=== PATIENT | female | born 1935 | race Caucasian/White ===

== ENCOUNTER → 2016-05-29 | Outpatient (CLI) | payer MEDICARE, OTHER ==
[~2016-05-29] MED LIST: AMBIEN10 MG PO; BENADRYL25 M2 PO; CALCIUM-MAGNES1 EAC2 PO; CLARITIN10 MG PO; ERGOCALCIFER50000 IU PO; FLONASE NASAL S16 GM NS; NORCO 325 MG-7.1 TA1 PO; POSTURE D; RECLAST5 MG/100 M IV; RECLAST5 MG/1001 IV; RITE AID ASPIRI81 M1 PO; TRIAMTERENE/HCT1 TAB PO; VITAMIN D5000 I2 PO
== END ==
LOC: LAB 13:30
DX: E86.0 Dehydration (principal)

== ENCOUNTER → 2016-06-25 | Outpatient (CLI) | payer MEDICARE, OTHER | LOC: LAB 14:47 | DX: E86.0 Dehydration (principal); I10 Essential (primary) hypertension ==

== ENCOUNTER → 2016-08-10 | Outpatient (CLI) | payer MEDICARE, OTHER | LOC: LAB 11:23 | DX: E11.9 Type 2 diabetes mellitus without complications (principal); I10 Essential (primary) hypertension; N28.9 Disorder of kidney and ureter, unspecified; M81.0 Age-related osteoporosis without current pathological fracture ==

== ENCOUNTER 2016-08-20 14:41 | Outpatient (RCR) | payer MEDICARE, OTHER ==
[2015-09-16 09:20] VITALS: BP 132/81
== END 2016-10-09 13:12 | disposition home or self-care (01) ==
LOC: PT 14:41 → LAB 14:41 → PT 10-09 13:12
DX: M54.5 Low back pain (principal); M54.6 Pain in thoracic spine
CPT/HCPCS: G0283-GP

== ENCOUNTER → 2016-10-27 | Outpatient (CLI) | payer MEDICARE, OTHER ==
[2015-09-16 09:20] VITALS: BP 132/81
== END ==
LOC: RAD 10:58
DX: J84.112 Idiopathic pulmonary fibrosis (principal)

== ENCOUNTER → 2016-11-20 | Outpatient (CLI) | payer MEDICARE, OTHER ==
[2015-09-16 09:20] VITALS: BP 132/81
== END ==
LOC: LAB 14:33
DX: N28.9 Disorder of kidney and ureter, unspecified (principal)

== ENCOUNTER → 2017-02-26 | Outpatient (CLI) | payer MEDICARE, OTHER ==
[2015-09-16 09:20] VITALS: BP 132/81
[2017-02-26 13:57] LABS: HEMOGLOBIN 12.7 g/dL (12.5-16.0); LYMPH# 2.3 (1.50-4.00); MEAN CELL VOLUME 94 fl (78-100); MEAN CORPUSCULAR HEMOGLOBIN 31 pg (27-31); MEAN CORPUSCULAR HGB CONC 33 g/dL (33-37); MEAN PLATELET VOLUME 10.4 fl (7.4-10.4); MONO # 0.8 (0.20-0.80); NEU # 3.9 (1.40-6.50); PLATELET COUNT 207 K/mm3 (130-400); RED BLOOD COUNT 4.14 M/mm3 (4.10-5.30); RED CELL DISTRIBUTION WIDTH 13.6 % (11.5-14.5); WHITE BLOOD COUNT 7.7 K/mm3 (4.8-10.8)
[2017-02-26 14:10] LABS: ALBUMIN 3.9 g/dL (3.5-5.0); BUN/CREATININE RATIO 19.6 (6.0-26.0); CALCIUM 9.7 mg/dL (8.4-10.2); POTASSIUM 4.7 mmol/L (3.6-5.0); TOTAL BILIRUBIN 0.9 mg/dL (0.2-1.3); TOTAL PROTEIN 7.5 g/dL (6.3-8.2)
[2017-02-26 14:21] LABS: URINE APPEARANCE HAZY; URINE BILIRUBIN NEGATIVE (NEGATIVE); URINE BLOOD NEGATIVE (NEGATIVE); URINE COLOR YELLOW; URINE GLUCOSE NEGATIVE (NEGATIVE); URINE KETONE NEGATIVE (NEGATIVE); URINE LEUKOCYTE ESTERASE 2+ (NEGATIVE); URINE NITRATE NEGATIVE (NEGATIVE); URINE PROTEIN(semi-quant) NEGATIVE (NEGATIVE); URINE UROBILINOGEN NORMAL (NORMAL); URINE WBC 16-30 /hpf (0-3)
[2017-02-26 14:22] LABS: URINE MUCUS PRESENT (NOT PRESENT)
[2017-02-26 15:54] LABS: EOS # 0.7 (0.04-0.40)
[2017-02-26 15:55] LABS: ERYTHROCYTE SEDIMENTATION RATE 15 mm/hr (0-30)
== END ==
LOC: LAB 13:33
PROVIDERS: Internal Medicine
DX: E11.9 Type 2 diabetes mellitus without complications (principal); I10 Essential (primary) hypertension; M81.0 Age-related osteoporosis without current pathological fracture; N28.9 Disorder of kidney and ureter, unspecified; Z12.11 Encounter for screening for malignant neoplasm of colon; R20.2 Paresthesia of skin

== ENCOUNTER → 2017-03-04 | Outpatient (CLI) | payer MEDICARE, OTHER ==
[~2017-03-04] VITALS: Ht 165.1 cm; Wt 79.5 kg
[~2017-03-04] MED LIST changes: +COZAAR 50MG50 MG/TAB PO; +PROLIA60 MG/ML SC
[2017-03-04 10:32] VITALS: BP 113/71
== END ==
LOC: AMSURD 10:20
DX: I49.3 Ventricular premature depolarization (principal)

== ENCOUNTER → 2017-03-05 | Outpatient (CLI) | payer MEDICARE, OTHER ==
[2017-03-04 10:32] VITALS: BP 113/71
[2017-03-05 13:53] LABS: URINE APPEARANCE CLOUDY; URINE COLOR YELLOW
[2017-03-05 13:54] LABS: URINE BILIRUBIN NEGATIVE (NEGATIVE); URINE BLOOD NEGATIVE (NEGATIVE); URINE GLUCOSE NEGATIVE (NEGATIVE); URINE KETONE NEGATIVE (NEGATIVE); URINE LEUKOCYTE ESTERASE 1+ (NEGATIVE); URINE NITRATE POSITIVE (NEGATIVE); URINE PROTEIN(semi-quant) TRACE mg/dL (NEGATIVE); URINE UROBILINOGEN NORMAL (NORMAL); URINE WBC >50 /hpf (0-3)
== END ==
LOC: LAB 13:05
PROVIDERS: Internal Medicine
DX: E11.9 Type 2 diabetes mellitus without complications (principal); I10 Essential (primary) hypertension; M81.0 Age-related osteoporosis without current pathological fracture; N28.9 Disorder of kidney and ureter, unspecified; N39.0 Urinary tract infection, site not specified

== ENCOUNTER → 2017-03-12 | Outpatient (CLI) | payer MEDICARE, OTHER ==
[2017-03-04 10:32] VITALS: BP 113/71
== END ==
LOC: LAB 10:42
PROVIDERS: Internal Medicine
DX: E11.9 Type 2 diabetes mellitus without complications (principal); I10 Essential (primary) hypertension; M81.0 Age-related osteoporosis without current pathological fracture; N28.9 Disorder of kidney and ureter, unspecified

== ENCOUNTER 2017-03-25 08:00 | Outpatient (RCR) | payer MEDICARE, OTHER ==
[2015-09-16 09:20] VITALS: BP 132/81
== END 2017-05-23 | disposition home or self-care (01) ==
LOC: PT
DX: M51.36 Other intervertebral disc degeneration, lumbar region (principal); M62.81 Muscle weakness (generalized)
CPT/HCPCS: G0283-GP; G8978-GP; G8979-GP

== ENCOUNTER → 2017-06-24 | Outpatient (CLI) | payer MEDICARE, OTHER ==
[2017-03-25 09:27] VITALS: BP 171/86
[2017-06-24 13:59] LABS: BUN/CREATININE RATIO 15.7 (6.0-26.0); CALCIUM 8.9 mg/dL (8.4-10.2)
== END ==
LOC: LAB 13:24
PROVIDERS: Internal Medicine
DX: E86.0 Dehydration (principal)

== ENCOUNTER 2017-09-01 14:00 | Outpatient (RCR) | payer MEDICARE, OTHER ==
[2017-03-25 09:27] VITALS: BP 171/86
== END 2017-09-01 14:30 | disposition home or self-care (01) ==
LOC: PT 14:00
DX: M54.5 Low back pain (principal); M54.6 Pain in thoracic spine
CPT/HCPCS: G0283-GP; G8978-GP; G8979-GP

== ENCOUNTER → 2017-09-30 | Outpatient (CLI) | payer MEDICARE, OTHER ==
[2017-03-25 09:27] VITALS: BP 171/86
[2017-09-30 10:10] LABS: ALBUMIN 3.8 g/dL (3.5-5.0); BUN/CREATININE RATIO 21.5 (6.0-26.0); CALCIUM 9.2 mg/dL (8.4-10.2); POTASSIUM 4.7 mmol/L (3.6-5.0); TOTAL BILIRUBIN 0.6 mg/dL (0.2-1.3); TOTAL PROTEIN 7.4 g/dL (6.3-8.2)
[2017-09-30 10:55] LABS: HEMATOCRIT 39.4 % (37.0-47.0); HEMOGLOBIN 12.6 g/dL (12.5-16.0); MEAN CELL VOLUME 94 fl (78-100); MEAN CORPUSCULAR HEMOGLOBIN 30 pg (27-31); MEAN CORPUSCULAR HGB CONC 32 g/dL (33-37); MEAN PLATELET VOLUME 11.1 fl (7.4-10.4); PLATELET COUNT 195 K/mm3 (130-400); RED CELL DISTRIBUTION WIDTH 14.1 % (11.5-14.5); WHITE BLOOD COUNT 7.5 K/mm3 (4.8-10.8)
[2017-09-30 11:02] LABS: ERYTHROCYTE SEDIMENTATION RATE 17 mm/hr (0-30); LYMPHOCYTE 34 % (20-51); MONOCYTE 7 % (3-10); NEUTROPHILS 48 % (42-75)
== END ==
LOC: RAD 09:00 → LAB 09:00
PROVIDERS: Internal Medicine
DX: J98.4 Other disorders of lung (principal); E11.9 Type 2 diabetes mellitus without complications; M81.0 Age-related osteoporosis without current pathological fracture; I10 Essential (primary) hypertension; N28.9 Disorder of kidney and ureter, unspecified; J84.10 Pulmonary fibrosis, unspecified

== ENCOUNTER → 2018-01-12 | Outpatient (CLI) | payer MEDICARE, OTHER ==
[2017-03-25 09:27] VITALS: BP 171/86
[2018-01-12 10:11] LABS: ALBUMIN 4.3 g/dL (3.5-5.0); CALCIUM 9.6 mg/dL (8.4-10.2); POTASSIUM 4.9 mmol/L (3.6-5.0); TOTAL BILIRUBIN 0.7 mg/dL (0.2-1.3); TOTAL PROTEIN 7.4 g/dL (6.3-8.2)
== END ==
LOC: LAB 09:38
PROVIDERS: Internal Medicine
DX: N28.9 Disorder of kidney and ureter, unspecified (principal); E11.9 Type 2 diabetes mellitus without complications; M81.0 Age-related osteoporosis without current pathological fracture; I10 Essential (primary) hypertension

== ENCOUNTER → 2018-01-24 | Outpatient (CLI) | payer MEDICARE, OTHER ==
[2017-03-25 09:27] VITALS: BP 171/86
== END ==
LOC: RAD 13:25
DX: S22.070A Wedge compression fracture of T9-T10 vertebra, initial encounter for closed fracture (principal); M47.894 Other spondylosis, thoracic region

== ENCOUNTER 2018-02-17 11:30 | Outpatient (RCR) | payer MEDICARE, OTHER ==
[2017-03-25 09:27] VITALS: BP 171/86
== END 2018-02-17 12:00 | disposition home or self-care (01) ==
LOC: PT 11:30
DX: M54.6 Pain in thoracic spine (principal); G89.29 Other chronic pain
CPT/HCPCS: G0283-GP

== ENCOUNTER → 2018-03-10 | Outpatient (CLI) | payer MEDICARE, OTHER ==
[2017-03-25 09:27] VITALS: BP 171/86
[2018-03-10 11:08] LABS: EOS # 0.6 (0.04-0.40); EOS % 7.4 % (1.0-5.0); HEMATOCRIT 34.6 % (37.0-47.0); HEMOGLOBIN 10.7 g/dL (12.5-16.0); LYMPH# 2.4 (1.50-4.00); MEAN CELL VOLUME 91 fl (78-100); MEAN CORPUSCULAR HEMOGLOBIN 28 pg (27-31); MEAN CORPUSCULAR HGB CONC 31 g/dL (33-37); MEAN PLATELET VOLUME 10.6 fl (7.4-10.4); MONO # 0.9 (0.20-0.80); NEU # 4.2 (1.40-6.50); PLATELET COUNT 222 K/mm3 (130-400); RED BLOOD COUNT 3.81 M/mm3 (4.10-5.30); WHITE BLOOD COUNT 8.1 K/mm3 (4.8-10.8)
[2018-03-10 11:13] LABS: ALBUMIN 4.2 g/dL (3.5-5.0); CALCIUM 9.4 mg/dL (8.4-10.2); POTASSIUM 4.9 mmol/L (3.6-5.0); TOTAL PROTEIN 7.6 g/dL (6.3-8.2)
[2018-03-10 12:16] LABS: ERYTHROCYTE SEDIMENTATION RATE 26 mm/hr (0-30)
[2018-03-10 12:28] LABS: URINE APPEARANCE HAZY; URINE BILIRUBIN NEGATIVE (NEGATIVE); URINE BLOOD NEGATIVE (NEGATIVE); URINE COLOR YELLOW; URINE GLUCOSE NEGATIVE (NEGATIVE); URINE KETONE NEGATIVE (NEGATIVE); URINE LEUKOCYTE ESTERASE 2+ (NEGATIVE); URINE NITRATE NEGATIVE (NEGATIVE); URINE PROTEIN(semi-quant) TRACE mg/dL (NEGATIVE); URINE UROBILINOGEN NORMAL (NORMAL)
[2018-03-10 12:29] LABS: URINE MUCUS PRESENT (NOT PRESENT); URINE WBC 31-50 /hpf (0-3)
== END ==
LOC: LAB 10:17
PROVIDERS: Internal Medicine
DX: Z12.11 Encounter for screening for malignant neoplasm of colon (principal); I10 Essential (primary) hypertension; E11.9 Type 2 diabetes mellitus without complications; D64.9 Anemia, unspecified; M81.0 Age-related osteoporosis without current pathological fracture

== ENCOUNTER → 2018-03-17 | Outpatient (CLI) | payer MEDICARE, OTHER ==
[2017-03-25 09:27] VITALS: BP 171/86
== END ==
LOC: LAB 10:38
DX: Z12.11 Encounter for screening for malignant neoplasm of colon (principal); E11.9 Type 2 diabetes mellitus without complications; D64.9 Anemia, unspecified

== ENCOUNTER → 2018-07-05 | Outpatient (CLI) | payer MEDICARE, OTHER ==
[2017-03-25 09:27] VITALS: BP 171/86
[2018-07-05 10:52] LABS: CALCIUM 9.3 mg/dL (8.4-10.2); POTASSIUM 4.7 mmol/L (3.6-5.0); TOTAL BILIRUBIN 0.8 mg/dL (0.2-1.3); TOTAL PROTEIN 7.3 g/dL (6.3-8.2)
== END ==
LOC: LAB 10:19
PROVIDERS: Internal Medicine
DX: E11.9 Type 2 diabetes mellitus without complications (principal); I10 Essential (primary) hypertension

== ENCOUNTER → 2018-10-06 | Outpatient (CLI) | payer MEDICARE, OTHER ==
[2017-03-25 09:27] VITALS: BP 171/86
[2018-10-06 14:16] LABS: ALBUMIN 3.8 g/dL (3.4-4.8); CALCIUM 9.7 mg/dL (8.3-10.5); TOTAL BILIRUBIN 0.5 mg/dL (0.2-1.2); TOTAL PROTEIN 7.2 g/dL (6.2-8.1)
== END ==
LOC: LAB 13:41
PROVIDERS: Internal Medicine
DX: E11.9 Type 2 diabetes mellitus without complications (principal); I10 Essential (primary) hypertension

== ENCOUNTER 2018-11-03 14:00 | Outpatient (RCR) | payer MEDICARE, OTHER ==
[2017-03-25 09:27] VITALS: BP 171/86
== END 2018-11-03 14:30 | disposition still patient (30) ==
LOC: PT 14:00
DX: M54.16 Radiculopathy, lumbar region (principal)

== ENCOUNTER → 2018-12-27 | Outpatient (CLI) | payer MEDICARE, OTHER ==
[2017-03-25 09:27] VITALS: BP 171/86
[2018-12-27 09:52] LABS: ALBUMIN 3.9 g/dL (3.4-4.8); POTASSIUM 4.5 mmol/L (3.5-5.1)
[2018-12-27 09:55] LABS: TOTAL PROTEIN 7.8 g/dL (6.2-8.1)
[2018-12-27 09:57] LABS: TOTAL BILIRUBIN 1.1 mg/dL (0.2-1.2)
== END ==
LOC: LAB 09:28
PROVIDERS: Internal Medicine
DX: I10 Essential (primary) hypertension (principal); E11.9 Type 2 diabetes mellitus without complications; M81.0 Age-related osteoporosis without current pathological fracture

== ENCOUNTER → 2019-01-02 | Outpatient (CLI) | payer MEDICARE, OTHER ==
[~2019-01-02] VITALS: Ht 165.1 cm; Wt 86.4 kg
[2019-01-02 12:27] LABS: HEMATOCRIT 41.1 % (37.0-47.0); HEMOGLOBIN 12.9 g/dL (12.5-16.0); MEAN CELL VOLUME 94 fl (78-100); MEAN CORPUSCULAR HEMOGLOBIN 30 pg (27-31); MEAN CORPUSCULAR HGB CONC 31 g/dL (33-37); MEAN PLATELET VOLUME 10.7 fl (7.4-10.4); PLATELET COUNT 218 K/mm3 (130-400); RED BLOOD COUNT 4.36 M/mm3 (4.10-5.30); RED CELL DISTRIBUTION WIDTH 14.1 % (11.5-14.5); WHITE BLOOD COUNT 8.7 K/mm3 (4.8-10.8)
[2019-01-02 12:44] LABS: LYMPHOCYTE 25 % (20-51); MONOCYTE 10 % (3-10); NEUTROPHILS 55 % (42-75)
[2019-01-02 13:25] LABS: ERYTHROCYTE SEDIMENTATION RATE 36 mm/hr (0-30)
[2019-01-02 13:48] VITALS: BP 130/71
== END ==
LOC: RAD 12:06
PROVIDERS: Internal Medicine
DX: J92.9 Pleural plaque without asbestos (principal); I10 Essential (primary) hypertension; D64.9 Anemia, unspecified; R20.2 Paresthesia of skin

== ENCOUNTER → 2019-01-23 | Outpatient (CLI) | payer MEDICARE, OTHER ==
[2019-01-02 13:48] VITALS: BP 130/71
[2019-01-23 16:03] LABS: POTASSIUM 5.4 mmol/L (3.5-5.1)
[2019-01-23 16:04] LABS: CALCIUM 9.3 mg/dL (8.3-10.5)
== END ==
LOC: LAB 15:07
PROVIDERS: Internal Medicine
DX: R60.0 Localized edema (principal); R06.02 Shortness of breath

== ENCOUNTER → 2019-01-26 | Outpatient (CLI) | payer MEDICARE, OTHER ==
[2019-01-02 13:48] VITALS: BP 130/71
== END ==
LOC: RAD 08:07
DX: R06.02 Shortness of breath (principal); R60.0 Localized edema; R09.02 Hypoxemia
CPT/HCPCS: Q9967

== ENCOUNTER → 2019-01-30 | Outpatient (CLI) | payer MEDICARE, OTHER ==
[2019-01-02 13:48] VITALS: BP 130/71
== END ==
LOC: VAS 15:54 → RAD 16:00
DX: R06.02 Shortness of breath (principal); R09.02 Hypoxemia

== ENCOUNTER → 2019-02-09 | Outpatient (CLI) | payer MEDICARE, OTHER ==
[2019-01-02 13:48] VITALS: BP 130/71
[2019-02-09 09:28] LABS: POTASSIUM 4.6 mmol/L (3.5-5.1)
[2019-02-09 09:29] LABS: CALCIUM 9.8 mg/dL (8.3-10.5)
== END ==
LOC: LAB 08:51
PROVIDERS: Internal Medicine
DX: R60.0 Localized edema (principal); R06.02 Shortness of breath

== ENCOUNTER → 2019-03-28 | Outpatient (CLI) | payer MEDICARE, OTHER ==
[2019-01-02 13:48] VITALS: BP 130/71
[2019-03-28 12:15] LABS: EOS # 0.6 (0.04-0.40); EOS % 6.6 % (1.0-5.0); HEMATOCRIT 35.8 % (37.0-47.0); LYMPH# 2.2 (1.50-4.00); MEAN CELL VOLUME 97 fl (78-100); MEAN CORPUSCULAR HEMOGLOBIN 30 pg (27-31); MEAN CORPUSCULAR HGB CONC 31 g/dL (33-37); MEAN PLATELET VOLUME 10.1 fl (7.4-10.4); NEU # 5.3 (1.40-6.50); PLATELET COUNT 232 K/mm3 (130-400); RED BLOOD COUNT 3.68 M/mm3 (4.10-5.30); RED CELL DISTRIBUTION WIDTH 14.5 % (11.5-14.5); WHITE BLOOD COUNT 9.2 K/mm3 (4.8-10.8)
[2019-03-28 12:26] LABS: ALBUMIN 3.8 g/dL (3.4-4.8); POTASSIUM 4.5 mmol/L (3.5-5.1)
[2019-03-28 12:27] LABS: CALCIUM 9.6 mg/dL (8.3-10.5)
[2019-03-28 12:28] LABS: TOTAL PROTEIN 7.2 g/dL (6.2-8.1)
[2019-03-28 12:30] LABS: TOTAL BILIRUBIN 0.8 mg/dL (0.2-1.2)
[2019-03-28 12:35] LABS: MAGNESIUM 2.17 mg/dL (1.60-2.60)
== END ==
LOC: LAB 11:56
PROVIDERS: Internal Medicine
DX: E11.9 Type 2 diabetes mellitus without complications (principal); I10 Essential (primary) hypertension

== ENCOUNTER → 2019-07-05 | Outpatient (CLI) | payer MEDICARE, OTHER ==
[2019-01-02 13:48] VITALS: BP 130/71
[2019-07-05 16:37] LABS: EOS # 0.4 (0.04-0.40); EOS % 4.7 % (1.0-5.0); HEMATOCRIT 25.9 % (37.0-47.0); LYMPH# 2.4 (1.50-4.00); MEAN CELL VOLUME 95 fl (78-100); MEAN CORPUSCULAR HEMOGLOBIN 27 pg (27-31); MEAN PLATELET VOLUME 9.1 fl (7.4-10.4); MONO # 0.8 (0.20-0.80); NEU # 4.7 (1.40-6.50); PLATELET COUNT 369 K/mm3 (130-400); RED BLOOD COUNT 2.74 M/mm3 (4.10-5.30); RED CELL DISTRIBUTION WIDTH 14.4 % (11.5-14.5); WHITE BLOOD COUNT 8.3 K/mm3 (4.8-10.8)
[2019-07-05 16:43] LABS: ALBUMIN 3.8 g/dL (3.4-4.8); POTASSIUM 4.6 mmol/L (3.5-5.1)
[2019-07-05 16:44] LABS: CALCIUM 9.6 mg/dL (8.3-10.5)
[2019-07-05 16:45] LABS: TOTAL PROTEIN 6.7 g/dL (6.2-8.1)
[2019-07-05 16:47] LABS: TOTAL BILIRUBIN 0.3 mg/dL (0.2-1.2)
[2019-07-05 16:52] LABS: MAGNESIUM 2.19 mg/dL (1.60-2.60)
[2019-07-05 16:58] LABS: HEMOGLOBIN 7.5 g/dL (12.5-16.0); MEAN CORPUSCULAR HGB CONC 29 g/dL (33-37)
== END ==
LOC: LAB 16:14
PROVIDERS: Internal Medicine
DX: Z12.11 Encounter for screening for malignant neoplasm of colon (principal); I10 Essential (primary) hypertension; E11.9 Type 2 diabetes mellitus without complications; D64.9 Anemia, unspecified

== ENCOUNTER → 2019-07-10 | Outpatient (CLI) | payer MEDICARE, OTHER ==
[2019-01-02 13:48] VITALS: BP 130/71
[2019-07-10 14:16] LABS: EOS # 0.6 (0.04-0.40); EOS % 5.6 % (1.0-5.0); HEMATOCRIT 27.6 % (37.0-47.0); HEMOGLOBIN 8.1 g/dL (12.5-16.0); LYMPH# 2.6 (1.50-4.00); MEAN CELL VOLUME 95 fl (78-100); MEAN CORPUSCULAR HEMOGLOBIN 28 pg (27-31); MEAN CORPUSCULAR HGB CONC 29 g/dL (33-37); MEAN PLATELET VOLUME 9.4 fl (7.4-10.4); MONO # 0.9 (0.20-0.80); NEU # 5.7 (1.40-6.50); PLATELET COUNT 340 K/mm3 (130-400); RED BLOOD COUNT 2.91 M/mm3 (4.10-5.30); RED CELL DISTRIBUTION WIDTH 14.8 % (11.5-14.5); WHITE BLOOD COUNT 9.8 K/mm3 (4.8-10.8)
== END ==
LOC: LAB 09:52
PROVIDERS: Internal Medicine
DX: Z12.11 Encounter for screening for malignant neoplasm of colon (principal); I10 Essential (primary) hypertension; E11.9 Type 2 diabetes mellitus without complications; D64.9 Anemia, unspecified

== ENCOUNTER → 2019-07-13 | Day surgery (SDC) | payer MEDICARE, OTHER ==
[2019-01-02 13:48] VITALS: BP 130/71
== END ==
LOC: MSO 08:35
DX: K57.30 Diverticulosis of large intestine without perforation or abscess without bleeding (principal); D50.0 Iron deficiency anemia secondary to blood loss (chronic); I10 Essential (primary) hypertension; G47.33 Obstructive sleep apnea (adult) (pediatric); E11.9 Type 2 diabetes mellitus without complications; Z88.1 Allergy status to other antibiotic agents; Z88.2 Allergy status to sulfonamides; Z79.82 Long term (current) use of aspirin; Z79.01 Long term (current) use of anticoagulants
CPT/HCPCS: 00813; J2704; J7030

== ENCOUNTER 2019-08-26 10:15 | Emergency (ER) | payer MEDICARE, OTHER ==
[2019-08-26] MEDS ORDERED: VITAMIN C500 M6 PO (10:32)
[2019-08-26] MEDS ORDERED: FEROSUL325 M1 PO (10:32)
[2019-08-26 11:22] LABS: EOS # 0.7 (0.04-0.40); HEMATOCRIT 39.5 % (37.0-47.0); HEMOGLOBIN 11.9 g/dL (12.5-16.0); MEAN CELL VOLUME 94 fl (78-100); MEAN CORPUSCULAR HEMOGLOBIN 28 pg (27-31); MEAN CORPUSCULAR HGB CONC 30 g/dL (33-37); MEAN PLATELET VOLUME 10.3 fl (7.4-10.4); PLATELET COUNT 250 K/mm3 (130-400); RED BLOOD COUNT 4.19 M/mm3 (4.10-5.30); RED CELL DISTRIBUTION WIDTH 15.8 % (11.5-14.5); WHITE BLOOD COUNT 9.7 K/mm3 (4.8-10.8)
[2019-08-26 11:36] LABS: POTASSIUM 4.8 mmol/L (3.5-5.1)
[2019-08-26 11:38] LABS: CALCIUM 9.8 mg/dL (8.3-10.5)
[2019-08-26 11:39] LABS: TOTAL PROTEIN 7.4 g/dL (6.2-8.1)
[2019-08-26 11:41] LABS: TOTAL BILIRUBIN 0.5 mg/dL (0.2-1.2)
[2019-08-26 11:54] LABS: D-DIMER 7.48 mg/L FEU (0.15-0.50)
[2019-08-26 12:23] VITALS: BP 138/80
== END 2019-08-26 12:28 | disposition home or self-care (01) ==
LOC: ED 10:15
PROVIDERS: Family Medicine
DX: M79.661 Pain in right lower leg (principal); Z86.718 Personal history of other venous thrombosis and embolism; Z79.82 Long term (current) use of aspirin
CPT/HCPCS: J1650

== ENCOUNTER → 2019-08-28 | Outpatient (CLI) | payer MEDICARE, OTHER ==
[2019-08-26 12:23] VITALS: BP 138/80
[~2019-08-28] MED LIST changes: +FEROSUL325 M1 PO; +VITAMIN C500 M6 PO
== END ==
LOC: RAD 13:15
DX: M79.89 Other specified soft tissue disorders (principal); Z86.718 Personal history of other venous thrombosis and embolism

== ENCOUNTER 2019-09-18 10:56 | Emergency (ER) | payer MEDICARE, OTHER ==
[2019-09-18] MEDS ORDERED: VITAMIN D21250 MCG PO (11:27)
[2019-09-18] MEDS ORDERED: OMEPRAZOLE40 MG PO (11:27)
[2019-09-18] MEDS ORDERED: XARELTO20 MG PO (11:27)
[2019-09-18] MEDS ORDERED: LOSARTAN POTASS50 M1 PO (11:27)
[2019-09-18] MEDS ORDERED: ASPIRIN E.C. 8181 MG (11:27)
[2019-09-18 11:36] LABS: EOS # 0.3 (0.04-0.40); EOS % 4.4 % (1.0-5.0); LYMPH# 1.4 (1.50-4.00); MEAN CELL VOLUME 97 fl (78-100); MEAN CORPUSCULAR HEMOGLOBIN 29 pg (27-31); MEAN CORPUSCULAR HGB CONC 30 g/dL (33-37); MEAN PLATELET VOLUME 10.6 fl (7.4-10.4); MONO # 0.7 (0.20-0.80); NEU # 5.1 (1.40-6.50); PLATELET COUNT 204 K/mm3 (130-400); RED CELL DISTRIBUTION WIDTH 17.2 % (11.5-14.5); WHITE BLOOD COUNT 7.5 K/mm3 (4.8-10.8)
[2019-09-18 11:41] LABS: HEMATOCRIT 20.4 % (37.0-47.0); HEMOGLOBIN 6.1 g/dL (12.5-16.0); RED BLOOD COUNT 2.11 M/mm3 (4.10-5.30)
[2019-09-18 11:44] LABS: URINE APPEARANCE CLEAR; URINE COLOR YELLOW
[2019-09-18 11:45] LABS: URINE BILIRUBIN NEGATIVE (NEGATIVE); URINE BLOOD NEGATIVE (NEGATIVE); URINE GLUCOSE NEGATIVE (NEGATIVE); URINE KETONE NEGATIVE (NEGATIVE); URINE LEUKOCYTE ESTERASE 1+ (NEGATIVE); URINE NITRATE POSITIVE (NEGATIVE); URINE PROTEIN(semi-quant) 1+ mg/dL (NEGATIVE); URINE UROBILINOGEN NORMAL (NORMAL)
[2019-09-18 11:54] LABS: ALBUMIN 3.5 g/dL (3.4-4.8); POTASSIUM 4.4 mmol/L (3.5-5.1)
[2019-09-18 11:55] LABS: CALCIUM 8.7 mg/dL (8.3-10.5)
[2019-09-18 11:56] LABS: TOTAL PROTEIN 5.9 g/dL (6.2-8.1)
[2019-09-18 11:58] LABS: TOTAL BILIRUBIN 0.3 mg/dL (0.2-1.2)
[2019-09-18 13:22] LABS: PARTIAL THROMBOPLASTIN TIME 23.3 SECONDS (21.0-32.0)
[2019-09-18 14:56] VITALS: BP 104/44
== END 2019-09-18 14:34 | disposition short-term general hospital (02) ==
LOC: ED 10:56
PROVIDERS: Nurse Practitioner
DX: K92.2 Gastrointestinal hemorrhage, unspecified (principal); N39.0 Urinary tract infection, site not specified; E11.9 Type 2 diabetes mellitus without complications; I10 Essential (primary) hypertension; Z86.718 Personal history of other venous thrombosis and embolism; Z87.891 Personal history of nicotine dependence; Z79.01 Long term (current) use of anticoagulants; Z79.82 Long term (current) use of aspirin
CPT/HCPCS: A4216; C9113; J0696; J2270; J2405; J7030

== ENCOUNTER → 2019-10-05 | Outpatient (CLI) | payer MEDICARE, OTHER ==
[2019-09-18 14:56] VITALS: BP 104/44
[~2019-10-05] MED LIST changes: +ASPIRIN E.C. 8181 MG; +LOSARTAN POTASS50 M1 PO; +OMEPRAZOLE40 MG PO; +VITAMIN D21250 MCG PO; +XARELTO20 MG PO
[2019-10-05 08:24] LABS: HEMATOCRIT 29.8 % (37.0-47.0); HEMOGLOBIN 8.9 g/dL (12.5-16.0); MEAN CELL VOLUME 95 fl (78-100); MEAN CORPUSCULAR HEMOGLOBIN 28 pg (27-31); MEAN CORPUSCULAR HGB CONC 30 g/dL (33-37); MEAN PLATELET VOLUME 9.3 fl (7.4-10.4); PLATELET COUNT 323 K/mm3 (130-400); RED BLOOD COUNT 3.14 M/mm3 (4.10-5.30); RED CELL DISTRIBUTION WIDTH 15.9 % (11.5-14.5); WHITE BLOOD COUNT 6.8 K/mm3 (4.8-10.8)
[2019-10-05 08:34] LABS: ALBUMIN 3.8 g/dL (3.4-4.8); POTASSIUM 4.1 mmol/L (3.5-5.1)
[2019-10-05 08:36] LABS: TOTAL PROTEIN 6.8 g/dL (6.2-8.1)
[2019-10-05 08:38] LABS: TOTAL BILIRUBIN 0.7 mg/dL (0.2-1.2)
[2019-10-05 08:43] LABS: MAGNESIUM 2.16 mg/dL (1.60-2.60)
[2019-10-05 09:46] LABS: LYMPHOCYTE 27 % (20-51); MONOCYTE 9 % (3-10); NEUTROPHILS 56 % (42-75)
== END ==
LOC: LAB 08:14
PROVIDERS: Internal Medicine
DX: D64.9 Anemia, unspecified (principal); E11.9 Type 2 diabetes mellitus without complications; I10 Essential (primary) hypertension

== ENCOUNTER → 2019-10-06 | Outpatient (CLI) | payer MEDICARE, OTHER ==
[2019-09-18 14:56] VITALS: BP 104/44
== END ==
LOC: RAD 10:32
DX: R06.02 Shortness of breath (principal); I82.409 Acute embolism and thrombosis of unspecified deep veins of unspecified lower extremity; E11.22 Type 2 diabetes mellitus with diabetic chronic kidney disease; N18.3 Chronic kidney disease, stage 3 (moderate); K92.2 Gastrointestinal hemorrhage, unspecified
CPT/HCPCS: Q9967

== ENCOUNTER → 2019-10-19 | Outpatient (CLI) | payer MEDICARE, OTHER ==
[2019-10-19 10:59] LABS: EOS # 0.5 (0.04-0.40); EOS % 4.9 % (1.0-5.0); HEMOGLOBIN 10.5 g/dL (12.5-16.0); LYMPH# 1.6 (1.50-4.00); MEAN CELL VOLUME 93 fl (78-100); MEAN CORPUSCULAR HEMOGLOBIN 28 pg (27-31); MEAN CORPUSCULAR HGB CONC 30 g/dL (33-37); MEAN PLATELET VOLUME 10.5 fl (7.4-10.4); NEU # 7.1 (1.40-6.50); PLATELET COUNT 217 K/mm3 (130-400); RED BLOOD COUNT 3.76 M/mm3 (4.10-5.30); RED CELL DISTRIBUTION WIDTH 17.2 % (11.5-14.5); WHITE BLOOD COUNT 10.3 K/mm3 (4.8-10.8)
[2019-10-19 11:15] LABS: POTASSIUM 4.9 mmol/L (3.5-5.1)
[2019-10-19 11:16] LABS: CALCIUM 9.3 mg/dL (8.3-10.5)
[2019-10-19 11:18] LABS: TOTAL PROTEIN 7.2 g/dL (6.2-8.1)
[2019-10-19 11:19] LABS: TOTAL BILIRUBIN 0.7 mg/dL (0.2-1.2)
[2019-10-19 11:24] LABS: MAGNESIUM 2.08 mg/dL (1.60-2.60)
== END ==
LOC: LAB 10:45
PROVIDERS: Internal Medicine
DX: E11.9 Type 2 diabetes mellitus without complications (principal); I10 Essential (primary) hypertension; D64.9 Anemia, unspecified

== ENCOUNTER → 2019-11-15 | Outpatient (CLI) | payer MEDICARE, OTHER ==
[2019-11-15 10:45] LABS: EOS # 0.6 (0.04-0.40); EOS % 7.4 % (1.0-5.0); HEMATOCRIT 37.7 % (37.0-47.0); HEMOGLOBIN 11.4 g/dL (12.5-16.0); LYMPH# 2.1 (1.50-4.00); MEAN CELL VOLUME 92 fl (78-100); MEAN CORPUSCULAR HEMOGLOBIN 28 pg (27-31); MEAN CORPUSCULAR HGB CONC 30 g/dL (33-37); MEAN PLATELET VOLUME 10.5 fl (7.4-10.4); MONO # 0.9 (0.20-0.80); NEU # 4.3 (1.40-6.50); PLATELET COUNT 226 K/mm3 (130-400); RED CELL DISTRIBUTION WIDTH 17.2 % (11.5-14.5); WHITE BLOOD COUNT 7.9 K/mm3 (4.8-10.8)
== END ==
LOC: LAB 10:25
PROVIDERS: Internal Medicine
DX: D64.9 Anemia, unspecified (principal); E11.9 Type 2 diabetes mellitus without complications; I10 Essential (primary) hypertension

== ENCOUNTER → 2019-11-16 | Outpatient (CLI) | payer MEDICARE, OTHER ==
[2019-11-16 15:58] LABS: ALBUMIN 3.9 g/dL (3.4-4.8)
[2019-11-16 15:59] LABS: POTASSIUM 4.7 mmol/L (3.5-5.1)
[2019-11-16 16:01] LABS: TOTAL PROTEIN 7.4 g/dL (6.2-8.1)
[2019-11-16 16:03] LABS: TOTAL BILIRUBIN 0.5 mg/dL (0.2-1.2)
[2019-11-16 16:07] LABS: MAGNESIUM 2.21 mg/dL (1.60-2.60)
== END ==
LOC: LAB 15:21
PROVIDERS: Internal Medicine
DX: I10 Essential (primary) hypertension (principal); E11.9 Type 2 diabetes mellitus without complications; M81.0 Age-related osteoporosis without current pathological fracture

== ENCOUNTER → 2019-12-12 | Outpatient (CLI) | payer MEDICARE, OTHER ==
[2019-12-12 16:58] LABS: POTASSIUM 5.1 mmol/L (3.5-5.1)
[2019-12-12 16:59] LABS: CALCIUM 9.3 mg/dL (8.3-10.5)
[2019-12-12 17:00] LABS: TOTAL PROTEIN 7.7 g/dL (6.2-8.1)
[2019-12-12 17:02] LABS: TOTAL BILIRUBIN 0.5 mg/dL (0.2-1.2)
[2019-12-12 17:07] LABS: MAGNESIUM 2.13 mg/dL (1.60-2.60)
[2019-12-12 17:11] LABS: HEMATOCRIT 39.5 % (37.0-47.0); HEMOGLOBIN 12.2 g/dL (12.5-16.0); MEAN CELL VOLUME 92 fl (78-100); MEAN CORPUSCULAR HEMOGLOBIN 28 pg (27-31); MEAN CORPUSCULAR HGB CONC 31 g/dL (33-37); MEAN PLATELET VOLUME 10.9 fl (7.4-10.4); PLATELET COUNT 223 K/mm3 (130-400); RED BLOOD COUNT 4.31 M/mm3 (4.10-5.30); RED CELL DISTRIBUTION WIDTH 17.9 % (11.5-14.5); WHITE BLOOD COUNT 8.2 K/mm3 (4.8-10.8)
[2019-12-12 17:35] LABS: LYMPHOCYTE 24 % (20-51); MONOCYTE 12 % (3-10); NEUTROPHILS 55 % (42-75)
== END ==
LOC: LAB 15:30
PROVIDERS: Internal Medicine
DX: E11.9 Type 2 diabetes mellitus without complications (principal); I10 Essential (primary) hypertension

== ENCOUNTER → 2020-02-09 | Outpatient (CLI) | payer MEDICARE, OTHER ==
[2020-02-09 10:53] LABS: ALBUMIN 3.9 g/dL (3.4-4.8); POTASSIUM 4.8 mmol/L (3.5-5.1)
[2020-02-09 10:54] LABS: CALCIUM 9.1 mg/dL (8.3-10.5)
[2020-02-09 10:56] LABS: TOTAL PROTEIN 6.8 g/dL (6.2-8.1)
[2020-02-09 10:58] LABS: TOTAL BILIRUBIN 0.7 mg/dL (0.2-1.2)
[2020-02-09 11:02] LABS: MAGNESIUM 2.12 mg/dL (1.60-2.60)
== END ==
LOC: LAB 10:14
PROVIDERS: Internal Medicine
DX: E11.9 Type 2 diabetes mellitus without complications (principal); D64.9 Anemia, unspecified; M81.0 Age-related osteoporosis without current pathological fracture; I10 Essential (primary) hypertension

== ENCOUNTER → 2020-05-08 | Outpatient (CLI) | payer MEDICARE, OTHER ==
[2020-05-08 12:57] LABS: HEMATOCRIT 40.8 % (37.0-47.0); HEMOGLOBIN 12.6 g/dL (12.5-16.0); MEAN CELL VOLUME 99 fl (78-100); MEAN CORPUSCULAR HEMOGLOBIN 30 pg (27-31); MEAN CORPUSCULAR HGB CONC 31 g/dL (33-37); MEAN PLATELET VOLUME 10.1 fl (7.4-10.4); PLATELET COUNT 196 K/mm3 (130-400); RED BLOOD COUNT 4.14 M/mm3 (4.10-5.30); RED CELL DISTRIBUTION WIDTH 13.4 % (11.5-14.5)
[2020-05-08 13:09] LABS: ALBUMIN 3.9 g/dL (3.4-4.8); POTASSIUM 4.4 mmol/L (3.5-5.1)
[2020-05-08 13:10] LABS: CALCIUM 9.1 mg/dL (8.3-10.5)
[2020-05-08 13:11] LABS: TOTAL PROTEIN 7.5 g/dL (6.2-8.1)
[2020-05-08 13:13] LABS: TOTAL BILIRUBIN 0.8 mg/dL (0.2-1.2)
[2020-05-08 13:31] LABS: LYMPHOCYTE 23 % (20-51); MONOCYTE 11 % (3-10); NEUTROPHILS 59 % (42-75)
== END ==
LOC: LAB 12:46
PROVIDERS: Internal Medicine
DX: I10 Essential (primary) hypertension (principal); E11.9 Type 2 diabetes mellitus without complications

== ENCOUNTER → 2020-05-22 | Outpatient (CLI) | payer MEDICARE, OTHER | LOC: LAB 13:01 | PROVIDERS: Internal Medicine | DX: N28.9 Disorder of kidney and ureter, unspecified (principal) ==

== ENCOUNTER → 2020-05-30 | Outpatient (CLI) | payer MEDICARE, OTHER | LOC: LAB 16:01 | DX: K92.2 Gastrointestinal hemorrhage, unspecified (principal) ==

== ENCOUNTER → 2020-08-08 | Outpatient (CLI) | payer MEDICARE, OTHER ==
[2020-08-08 17:20] LABS: POTASSIUM 4.5 mmol/L (3.5-5.1)
[2020-08-08 17:21] LABS: ALBUMIN 3.7 g/dL (3.4-4.8)
[2020-08-08 17:22] LABS: CALCIUM 9.2 mg/dL (8.3-10.5)
[2020-08-08 17:23] LABS: TOTAL PROTEIN 7.2 g/dL (6.2-8.1)
[2020-08-08 17:25] LABS: TOTAL BILIRUBIN 0.6 mg/dL (0.2-1.2)
[2020-08-08 17:26] LABS: HEMATOCRIT 39.8 % (37.0-47.0); HEMOGLOBIN 12.2 g/dL (12.5-16.0); MEAN CELL VOLUME 99 fl (78-100); MEAN CORPUSCULAR HEMOGLOBIN 30 pg (27-31); MEAN CORPUSCULAR HGB CONC 31 g/dL (33-37); MEAN PLATELET VOLUME 10.7 fl (7.4-10.4); PLATELET COUNT 206 K/mm3 (130-400); RED BLOOD COUNT 4.03 M/mm3 (4.10-5.30); RED CELL DISTRIBUTION WIDTH 13.5 % (11.5-14.5); WHITE BLOOD COUNT 9.3 K/mm3 (4.8-10.8)
[2020-08-08 18:11] LABS: LYMPHOCYTE 23 % (20-51); MONOCYTE 9 % (3-10); NEUTROPHILS 60 % (42-75)
== END ==
LOC: LAB 16:12
PROVIDERS: Internal Medicine
DX: E11.9 Type 2 diabetes mellitus without complications (principal); E78.2 Mixed hyperlipidemia; I10 Essential (primary) hypertension

== ENCOUNTER → 2020-11-18 | Outpatient (CLI) | payer MEDICARE, OTHER ==
[2020-11-18 16:06] LABS: ALBUMIN 3.8 g/dL (3.4-4.8)
[2020-11-18 16:07] LABS: POTASSIUM 4.8 mmol/L (3.5-5.1)
[2020-11-18 16:08] LABS: CALCIUM 9.1 mg/dL (8.3-10.5)
[2020-11-18 16:09] LABS: TOTAL PROTEIN 7.4 g/dL (6.2-8.1)
[2020-11-18 16:11] LABS: TOTAL BILIRUBIN 0.9 mg/dL (0.2-1.2)
== END ==
LOC: LAB 15:38
PROVIDERS: Internal Medicine
DX: E11.9 Type 2 diabetes mellitus without complications (principal)

== ENCOUNTER → 2020-11-20 | Outpatient (CLI) | payer MEDICARE, OTHER ==
[2020-11-20 17:11] LABS: URINE APPEARANCE CLOUDY; URINE BILIRUBIN NEGATIVE (NEGATIVE); URINE BLOOD TRACE (NEGATIVE); URINE COLOR LT YELLOW; URINE GLUCOSE NEGATIVE (NEGATIVE); URINE KETONE NEGATIVE (NEGATIVE); URINE LEUKOCYTE ESTERASE 1+ (NEGATIVE); URINE NITRATE POSITIVE (NEGATIVE); URINE PROTEIN(semi-quant) TRACE mg/dL (NEGATIVE); URINE UROBILINOGEN NORMAL (NORMAL); URINE WBC 31-50 /hpf (0-3)
== END ==
LOC: LAB 15:55
PROVIDERS: Internal Medicine
DX: N39.0 Urinary tract infection, site not specified (principal)

== ENCOUNTER → 2021-02-12 | Outpatient (CLI) | payer MEDICARE, OTHER ==
[2021-02-12 15:51] LABS: BASO # 0.03 K/mm3 (0.02-0.10); EOS # 1.07 K/mm3 (0.04-0.40); EOS % 10.5 % (1.0-5.0); HEMATOCRIT 41.2 % (37.0-47.0); HEMOGLOBIN 13.2 g/dL (12.5-16.0); LYMPH# 2.85 K/mm3 (1.50-4.00); MEAN CELL VOLUME 100 fl (78-100); MEAN CORPUSCULAR HEMOGLOBIN 32 pg (27-31); MEAN CORPUSCULAR HGB CONC 32 g/dL (33-37); MEAN PLATELET VOLUME 10.2 fl (7.4-10.4); MONO # 1.08 K/mm3 (0.20-0.80); NEU # 5.13 K/mm3 (1.40-6.50); PLATELET COUNT 197 K/mm3 (130-400); RED BLOOD COUNT 4.13 M/mm3 (4.10-5.30); RED CELL DISTRIBUTION WIDTH 12.6 % (11.5-14.5); WHITE BLOOD COUNT 10.2 K/mm3 (4.8-10.8)
[2021-02-12 16:03] LABS: ALBUMIN 3.9 g/dL (3.4-4.8); POTASSIUM 4.6 mmol/L (3.5-5.1)
[2021-02-12 16:04] LABS: CALCIUM 9.9 mg/dL (8.3-10.5)
[2021-02-12 16:06] LABS: TOTAL PROTEIN 7.7 g/dL (6.2-8.1)
[2021-02-12 16:07] LABS: TOTAL BILIRUBIN 0.7 mg/dL (0.2-1.2)
== END ==
LOC: LAB 15:32
PROVIDERS: Internal Medicine
DX: E11.9 Type 2 diabetes mellitus without complications (principal); K90.9 Intestinal malabsorption, unspecified

== ENCOUNTER → 2021-02-14 | Outpatient (CLI) | payer MEDICARE, OTHER ==
[2021-02-14 17:05] LABS: URINE APPEARANCE HAZY; URINE BILIRUBIN NEGATIVE (NEGATIVE); URINE BLOOD NEGATIVE (NEGATIVE); URINE COLOR YELLOW; URINE GLUCOSE NEGATIVE (NEGATIVE); URINE KETONE NEGATIVE (NEGATIVE); URINE LEUKOCYTE ESTERASE 2+ (NEGATIVE); URINE NITRATE NEGATIVE (NEGATIVE); URINE PROTEIN(semi-quant) TRACE mg/dL (NEGATIVE); URINE UROBILINOGEN NORMAL (NORMAL); URINE WBC 31-50 /hpf (0-3)
== END | disposition still patient (30) ==
LOC: LAB 00:21
PROVIDERS: Internal Medicine
DX: E11.9 Type 2 diabetes mellitus without complications (principal); K90.9 Intestinal malabsorption, unspecified

== ENCOUNTER → 2021-05-21 | Outpatient (CLI) | payer MEDICARE, OTHER ==
[2021-05-21 16:23] LABS: BASO # 0.03 K/mm3 (0.02-0.10); EOS # 0.66 K/mm3 (0.04-0.40); HEMATOCRIT 40.1 % (37.0-47.0); HEMOGLOBIN 12.8 g/dL (12.5-16.0); LYMPH# 2.02 K/mm3 (1.50-4.00); MEAN CELL VOLUME 98 fl (78-100); MEAN CORPUSCULAR HEMOGLOBIN 31 pg (27-31); MEAN CORPUSCULAR HGB CONC 32 g/dL (33-37); MONO # 0.98 K/mm3 (0.20-0.80); NEU # 4.53 K/mm3 (1.40-6.50); PLATELET COUNT 214 K/mm3 (130-400); RED BLOOD COUNT 4.08 M/mm3 (4.10-5.30); RED CELL DISTRIBUTION WIDTH 12.9 % (11.5-14.5); WHITE BLOOD COUNT 8.3 K/mm3 (4.8-10.8)
[2021-05-21 16:32] LABS: ALBUMIN 3.9 g/dL (3.4-4.8)
[2021-05-21 16:33] LABS: CALCIUM 10.2 mg/dL (8.3-10.5)
[2021-05-21 16:35] LABS: TOTAL PROTEIN 7.6 g/dL (6.2-8.1)
[2021-05-21 16:36] LABS: TOTAL BILIRUBIN 0.7 mg/dL (0.2-1.2)
== END ==
LOC: LAB 15:59
PROVIDERS: Internal Medicine
DX: E11.9 Type 2 diabetes mellitus without complications (principal); K90.9 Intestinal malabsorption, unspecified; E78.2 Mixed hyperlipidemia; I10 Essential (primary) hypertension

== ENCOUNTER → 2021-08-14 | Outpatient (CLI) | payer MEDICARE, OTHER ==
[2021-08-14 15:40] LABS: CALCIUM 10.1 mg/dL (8.3-10.5)
[2021-08-14 15:41] LABS: TOTAL PROTEIN 7.7 g/dL (6.2-8.1)
[2021-08-14 15:43] LABS: TOTAL BILIRUBIN 0.6 mg/dL (0.2-1.2)
== END ==
LOC: LAB 15:15
PROVIDERS: Internal Medicine
DX: E11.9 Type 2 diabetes mellitus without complications (principal); N28.9 Disorder of kidney and ureter, unspecified

== ENCOUNTER → 2021-11-17 | Outpatient (CLI) | payer MEDICARE, OTHER ==
[2021-11-17 13:38] LABS: POTASSIUM 4.7 mmol/L (3.5-5.1)
[2021-11-17 13:39] LABS: CALCIUM 10.3 mg/dL (8.3-10.5)
[2021-11-17 13:41] LABS: TOTAL PROTEIN 7.8 g/dL (6.2-8.1)
== END ==
LOC: LAB 08:13
PROVIDERS: Internal Medicine
DX: E78.2 Mixed hyperlipidemia (principal); E11.9 Type 2 diabetes mellitus without complications

== ENCOUNTER → 2021-12-01 | Outpatient (CLI) | payer MEDICARE, OTHER | LOC: MAMMO 13:30 → RAD 13:30 | DX: M81.0 Age-related osteoporosis without current pathological fracture (principal) ==

== ENCOUNTER → 2022-01-29 | Outpatient (CLI) | payer MEDICARE, OTHER ==
[2022-01-29 17:18] LABS: BASO # 0.04 K/mm3 (0.02-0.10); EOS # 0.86 K/mm3 (0.04-0.40); EOS % 9.1 % (1.0-5.0); HEMATOCRIT 41.3 % (37.0-47.0); HEMOGLOBIN 13.2 g/dL (12.5-16.0); LYMPH# 2.45 K/mm3 (1.50-4.00); MEAN CELL VOLUME 98 fl (78-100); MEAN CORPUSCULAR HEMOGLOBIN 31 pg (27-31); MEAN CORPUSCULAR HGB CONC 32 g/dL (33-37); MEAN PLATELET VOLUME 10.6 fl (7.4-10.4); MONO # 1.02 K/mm3 (0.20-0.80); PLATELET COUNT 200 K/mm3 (130-400); RED BLOOD COUNT 4.22 M/mm3 (4.10-5.30); WHITE BLOOD COUNT 9.5 K/mm3 (4.8-10.8)
[2022-01-29 17:28] LABS: POTASSIUM 4.5 mmol/L (3.5-5.1)
[2022-01-29 17:29] LABS: CALCIUM 10.4 mg/dL (8.3-10.5)
[2022-01-29 17:30] LABS: TOTAL PROTEIN 8.2 g/dL (6.2-8.1)
[2022-01-29 17:32] LABS: TOTAL BILIRUBIN 0.5 mg/dL (0.2-1.2)
[2022-01-29 17:33] LABS: D-DIMER 1.09 mg/L FEU (0.15-0.50)
[2022-01-29 18:06] LABS: ALBUMIN 4.2 g/dL (3.4-4.8)
== END ==
LOC: LAB 16:41
PROVIDERS: Nurse Practitioner
DX: M25.562 Pain in left knee (principal); R22.40 Localized swelling, mass and lump, unspecified lower limb

== ENCOUNTER → 2022-01-30 | Outpatient (CLI) | payer MEDICARE, OTHER | LOC: RAD 07:04 | DX: Z13.6 Encounter for screening for cardiovascular disorders (principal); I82.462 Acute embolism and thrombosis of left calf muscular vein ==

== ENCOUNTER → 2022-02-24 | Outpatient (CLI) | payer MEDICARE, OTHER | LOC: RAD 14:09 | DX: R06.00 Dyspnea, unspecified (principal) ==

== ENCOUNTER → 2022-05-12 | Outpatient (CLI) | payer MEDICARE, OTHER ==
[~2022-05-12] MED LIST changes: +CALCIUM500 M1 PO; +CLOPIDOGREL PO; +PROAIR HFA0.09 MG/AC IH; +PROTONIX TR40 M1 PO; +SINGULAIR PO; +ZINC50 M4 PO
[2022-05-12 15:58] LABS: BASO # 0.05 K/mm3 (0.02-0.10); EOS # 0.54 K/mm3 (0.04-0.40); EOS % 5.7 % (1.0-5.0); HEMATOCRIT 36.5 % (37.0-47.0); HEMOGLOBIN 11.8 g/dL (12.5-16.0); LYMPH# 1.94 K/mm3 (1.50-4.00); MEAN CELL VOLUME 98 fl (78-100); MEAN CORPUSCULAR HEMOGLOBIN 32 pg (27-31); MEAN CORPUSCULAR HGB CONC 32 g/dL (33-37); MEAN PLATELET VOLUME 10.1 fl (7.4-10.4); NEU # 6.12 K/mm3 (1.40-6.50); PLATELET COUNT 229 K/mm3 (130-400); RED BLOOD COUNT 3.73 M/mm3 (4.10-5.30); RED CELL DISTRIBUTION WIDTH 13.4 % (11.5-14.5); WHITE BLOOD COUNT 9.5 K/mm3 (4.8-10.8)
[2022-05-12 16:03] LABS: ALBUMIN 3.7 g/dL (3.4-4.8)
[2022-05-12 16:04] LABS: CALCIUM 9.8 mg/dL (8.3-10.5)
[2022-05-12 16:05] LABS: TOTAL PROTEIN 7.5 g/dL (6.2-8.1)
[2022-05-12 16:07] LABS: TOTAL BILIRUBIN 0.5 mg/dL (0.2-1.2)
[2022-05-12 16:12] LABS: MAGNESIUM 2.14 mg/dL (1.60-2.60)
== END ==
LOC: LAB 15:22
PROVIDERS: Internal Medicine
DX: I82.409 Acute embolism and thrombosis of unspecified deep veins of unspecified lower extremity (principal); M51.34 Other intervertebral disc degeneration, thoracic region; R06.00 Dyspnea, unspecified; J34.89 Other specified disorders of nose and nasal sinuses; K90.9 Intestinal malabsorption, unspecified; I10 Essential (primary) hypertension; E11.9 Type 2 diabetes mellitus without complications; E78.2 Mixed hyperlipidemia; M81.0 Age-related osteoporosis without current pathological fracture

== ENCOUNTER → 2023-01-26 | Outpatient (CLI) | payer MEDICARE, OTHER ==
[~2023-01-26] MED LIST changes: -CALCIUM500 M1 PO; -CLOPIDOGREL PO; -PROTONIX TR40 M1 PO; -SINGULAIR PO; -ZINC50 M4 PO
[2023-01-26 16:39] LABS: BASO # 0.03 K/mm3 (0.02-0.10); EOS # 0.96 K/mm3 (0.04-0.40); EOS % 9.3 % (1.0-5.0); HEMATOCRIT 38.8 % (37.0-47.0); HEMOGLOBIN 12.4 g/dL (12.5-16.0); LYMPH# 2.52 K/mm3 (1.50-4.00); MEAN CELL VOLUME 99 fl (78-100); MEAN CORPUSCULAR HEMOGLOBIN 32 pg (27-31); MEAN CORPUSCULAR HGB CONC 32 g/dL (33-37); MEAN PLATELET VOLUME 10.5 fl (7.4-10.4); MONO # 1.02 K/mm3 (0.20-0.80); NEU # 5.72 K/mm3 (1.40-6.50); PLATELET COUNT 208 K/mm3 (130-400); RED BLOOD COUNT 3.91 M/mm3 (4.10-5.30); RED CELL DISTRIBUTION WIDTH 13.2 % (11.5-14.5); WHITE BLOOD COUNT 10.3 K/mm3 (4.8-10.8)
[2023-01-26 16:43] LABS: ALBUMIN 3.7 g/dL (3.4-4.8); POTASSIUM 4.9 mmol/L (3.5-5.1)
[2023-01-26 16:44] LABS: CALCIUM 9.7 mg/dL (8.3-10.5)
[2023-01-26 16:45] LABS: TOTAL PROTEIN 7.6 g/dL (6.2-8.1)
[2023-01-26 16:47] LABS: TOTAL BILIRUBIN 0.6 mg/dL (0.2-1.2)
[2023-01-26 16:52] LABS: MAGNESIUM 2.19 mg/dL (1.60-2.60)
[2023-01-26 17:05] LABS: URINE APPEARANCE CLEAR; URINE BILIRUBIN NEGATIVE (NEGATIVE); URINE BLOOD NEGATIVE (NEGATIVE); URINE COLOR YELLOW; URINE GLUCOSE 50 mg/dL (NEGATIVE); URINE KETONE NEGATIVE (NEGATIVE); URINE LEUKOCYTE ESTERASE 1+ (NEGATIVE); URINE NITRATE NEGATIVE (NEGATIVE); URINE PROTEIN(semi-quant) 1+ (NEGATIVE); URINE UROBILINOGEN NORMAL (NORMAL)
[2023-01-26 18:12] LABS: ERYTHROCYTE SEDIMENTATION RATE 45 mm/hr (0-30)
== END ==
LOC: LAB 16:08
PROVIDERS: Internal Medicine
DX: Z12.11 Encounter for screening for malignant neoplasm of colon (principal); E61.1 Iron deficiency; K90.9 Intestinal malabsorption, unspecified; E78.2 Mixed hyperlipidemia; J84.10 Pulmonary fibrosis, unspecified; I10 Essential (primary) hypertension; M81.0 Age-related osteoporosis without current pathological fracture; E11.9 Type 2 diabetes mellitus without complications

== ENCOUNTER → 2023-03-03 | Day surgery (SDC) | payer MEDICARE, OTHER | END | disposition home or self-care (01) | LOC: MSO 13:33 | DX: E11.36 Type 2 diabetes mellitus with diabetic cataract (principal); H26.491 Other secondary cataract, right eye ==

== ENCOUNTER 2023-04-11 13:05 | Observation (INO) | payer MEDICARE, OTHER ==
[~2023-04-11] VITALS: Ht 165.1 cm; Wt 78.7 kg
[2023-04-11] MEDS ORDERED: SINGULAIR PO (13:23)
[2023-04-11] MEDS ORDERED: ZINC50 M4 PO (13:24)
[2023-04-11] MEDS ORDERED: CALCIUM500 M1 PO (13:26)
[2023-04-11 13:56] LABS: BASO # 0.03 K/mm3 (0.02-0.10); EOS # 0.27 K/mm3 (0.04-0.40); EOS % 2.8 % (1.0-5.0); HEMATOCRIT 37.9 % (37.0-47.0); HEMOGLOBIN 12.1 g/dL (12.5-16.0); LYMPH# 1.73 K/mm3 (1.50-4.00); MEAN CELL VOLUME 97 fl (78-100); MEAN CORPUSCULAR HEMOGLOBIN 31 pg (27-31); MEAN CORPUSCULAR HGB CONC 32 g/dL (33-37); MEAN PLATELET VOLUME 9.9 fl (7.4-10.4); MONO # 0.91 K/mm3 (0.20-0.80); NEU # 6.68 K/mm3 (1.40-6.50); PLATELET COUNT 193 K/mm3 (130-400); RED BLOOD COUNT 3.89 M/mm3 (4.10-5.30); RED CELL DISTRIBUTION WIDTH 13.7 % (11.5-14.5); WHITE BLOOD COUNT 9.7 K/mm3 (4.8-10.8)
[2023-04-11 14:11] LABS: CALCIUM 9.9 mg/dL (8.3-10.5)
[2023-04-11 17:58] VITALS: BP 179/95
[2023-04-11 18:08] LABS: URINE APPEARANCE CLEAR; URINE BILIRUBIN NEGATIVE (NEGATIVE); URINE COLOR YELLOW; URINE KETONE NEGATIVE (NEGATIVE); URINE NITRATE NEGATIVE (NEGATIVE); URINE PROTEIN(semi-quant) TRACE (NEGATIVE); URINE UROBILINOGEN NORMAL (NORMAL)
[2023-04-11 18:09] LABS: URINE BLOOD NEGATIVE (NEGATIVE); URINE GLUCOSE 50 mg/dL (NEGATIVE); URINE LEUKOCYTE ESTERASE NEGATIVE (NEGATIVE)
[2023-04-11 21:51] VITALS: BP 125/75
[2023-04-12 02:06] VITALS: BP 137/60
[2023-04-12 06:11] VITALS: BP 165/78
[2023-04-12] MEDS ORDERED: CLOPIDOGREL PO (08:20)
[2023-04-12] MEDS ORDERED: PROTONIX TR40 M1 PO (08:21)
[2023-04-12 09:42] VITALS: BP 148/84
== END 2023-04-12 10:20 | disposition home or self-care (01) ==
LOC: ED 13:05 → MED/SURG 16:37
PROVIDERS: ADMIT Family Medicine
DX: R79.89 Other specified abnormal findings of blood chemistry (principal); G45.9 Transient cerebral ischemic attack, unspecified; R53.1 Weakness; R53.83 Other fatigue; I12.9 Hypertensive chronic kidney disease with stage 1 through stage 4 chronic kidney disease, or unspecified chronic kidney disease; E11.22 Type 2 diabetes mellitus with diabetic chronic kidney disease; N18.9 Chronic kidney disease, unspecified; J84.10 Pulmonary fibrosis, unspecified; E66.9 Obesity, unspecified; Z87.19 Personal history of other diseases of the digestive system
CPT/HCPCS: G0378; J1650

== ENCOUNTER → 2023-06-07 | Outpatient (CLI) | payer MEDICARE, OTHER ==
[~2023-06-07] MED LIST changes: +CALCIUM500 M1 PO; +CLOPIDOGREL PO; +PROTONIX TR40 M1 PO; +SINGULAIR PO; +ZINC50 M4 PO
[2023-06-07 12:24] LABS: ALBUMIN 3.8 g/dL (3.4-4.8)
[2023-06-07 12:25] LABS: CALCIUM 9.9 mg/dL (8.3-10.5)
[2023-06-07 12:26] LABS: TOTAL PROTEIN 7.5 g/dL (6.2-8.1)
[2023-06-07 12:28] LABS: TOTAL BILIRUBIN 0.75 mg/dL (0.2-1.2)
== END ==
LOC: LAB 11:08
PROVIDERS: Internal Medicine
DX: E78.2 Mixed hyperlipidemia (principal)

== ENCOUNTER → 2023-07-27 | Outpatient (CLI) | payer MEDICARE, OTHER ==
[2023-07-27 11:50] LABS: BASO # 0.03 K/mm3 (0.02-0.10); EOS # 0.64 K/mm3 (0.04-0.40); EOS % 6.6 % (1.0-5.0); HEMATOCRIT 40.7 % (37.0-47.0); HEMOGLOBIN 12.8 g/dL (12.5-16.0); LYMPH# 2.04 K/mm3 (1.50-4.00); MEAN CELL VOLUME 97 fl (78-100); MEAN CORPUSCULAR HEMOGLOBIN 31 pg (27-31); MEAN CORPUSCULAR HGB CONC 31 g/dL (33-37); MEAN PLATELET VOLUME 10.4 fl (7.4-10.4); MONO # 0.89 K/mm3 (0.20-0.80); NEU # 6.11 K/mm3 (1.40-6.50); PLATELET COUNT 197 K/mm3 (130-400); RED BLOOD COUNT 4.19 M/mm3 (4.10-5.30); RED CELL DISTRIBUTION WIDTH 12.7 % (11.5-14.5); WHITE BLOOD COUNT 9.7 K/mm3 (4.8-10.8)
[2023-07-27 11:55] LABS: ALBUMIN 4.1 g/dL (3.4-4.8)
[2023-07-27 11:56] LABS: CALCIUM 11.2 mg/dL (8.3-10.5)
[2023-07-27 11:58] LABS: TOTAL PROTEIN 8.3 g/dL (6.2-8.1)
[2023-07-27 12:00] LABS: TOTAL BILIRUBIN 0.8 mg/dL (0.2-1.2)
[2023-07-27 12:04] LABS: MAGNESIUM 2.15 mg/dL (1.60-2.60)
== END ==
LOC: LAB 11:29
PROVIDERS: Internal Medicine
DX: M81.0 Age-related osteoporosis without current pathological fracture (principal); I10 Essential (primary) hypertension; E78.2 Mixed hyperlipidemia; E61.1 Iron deficiency; E11.9 Type 2 diabetes mellitus without complications

== ENCOUNTER → 2023-08-03 | Outpatient (CLI) | payer MEDICARE, OTHER ==
[~2023-08-03] VITALS: Ht 165.1 cm; Wt 81.0 kg
[~2023-08-03] MED LIST changes: +COZAAR25 M1 PO; +CRESTOR5 MG PO; +Denosumab 60 MG/ML SYRINGE SQ ONE; +ZYRTEC ALLERGY10 MG PO
[2023-08-03 11:29] VITALS: BP 145/69
== END ==
LOC: AMSURD 11:05
DX: M81.0 Age-related osteoporosis without current pathological fracture (principal)
CPT/HCPCS: J0897

== ENCOUNTER → 2023-10-12 | Outpatient (CLI) | payer MEDICARE, OTHER ==
[~2023-10-12] MED LIST changes: -Denosumab 60 MG/ML SYRINGE SQ ONE
[2023-11-30 10:34] LABS: ALBUMIN 4.1 g/dL (3.4-4.8); CALCIUM 9.8 mg/dL (8.3-10.5); MAGNESIUM 2.05 mg/dL (1.60-2.60); TOTAL BILIRUBIN 0.9 mg/dL (0.2-1.2); TOTAL PROTEIN 7.5 g/dL (6.2-8.1)
== END ==
LOC: LAB 14:12
PROVIDERS: Internal Medicine
DX: I10 Essential (primary) hypertension (principal); E11.9 Type 2 diabetes mellitus without complications